=== PATIENT | female | born 1965 | race Caucasian/White ===

== ENCOUNTER → 2016-11-06 | Outpatient (CLI) | payer BC ==
[~2016-11-06] MED LIST: LEVO-105 PO; NYSTOIN TOP; PROM25TA PO; VLT500 PO
--- NOTE | 2016-11-07 14:08 | MAMMOGRAPHY REPORT ---
BILATERAL DIGITAL SCREENING MAMMOGRAM TOMOSYNTHESIS WITH CAD: 11/06/2016 CLINICAL HISTORY: Routine screening examination. TECHNIQUE: Breast tomosynthesis in addition to standard 2D mammography was performed. Current study was also evaluated with a Computer Aided Detection (CAD) system. COMPARISON: Comparison is made to exams dated: 11/03/2015 mammogram, 11/02/2014 mammogram - [facility], 10/18/2008, 10/19/2009 mammogram, 10/20/2010 mammogram, and 10/28/2012 mammogram - [facility]. BREAST COMPOSITION: The tissue of both breasts is extremely dense, which lowers the sensitivity of mammography. FINDINGS: There is a benign rim calcification within the left breast. The parenchymal pattern is s imilar to prior exams. No suspicious mass, architectural distortion or cluster of microcalcificatio ns is seen. IMPRESSION: ACR BI-RADS CATEGORY 1: NEGATIVE There is no mammographic evidence of malignancy. A 1 year screening mammogram is recommended. The p atient will receive written notification of the results. Approximately 10% of breast cancers are not detected with mammography. A negative mammographic repor t should not delay biopsy if a clinically suggestive mass is present. Pinky Hogan M.D. ay/:11/06/2016 21:14:53 Transaction Processor: Janna BHATT)(Breonna), [facility] letter sent: Normal 1/2 BI-RADS Code: ACR BI-RADS Category 1: Negative
== END | disposition home or self-care (01) ==
LOC: C.MAMM 15:09
PROVIDERS: ATTEND Obstetrics & Gynecology
DX: Z12.31 Encounter for screening mammogram for malignant neoplasm of breast (principal)

== ENCOUNTER → 2017-11-12 | Outpatient (CLI) | payer BC ==
--- NOTE | 2017-11-13 15:22 | MAMMOGRAPHY REPORT ---
BILATERAL DIGITAL SCREENING MAMMOGRAM TOMOSYNTHESIS WITH CAD: 11/12/2017 CLINICAL HISTORY: Routine screening. Patient has no complaints. TECHNIQUE: Breast tomosynthesis in addition to standard 2D mammography was performed. Current study was also evaluated with a Computer Aided Detection (CAD) system. COMPARISON: Comparison is made to exams dated: 11/06/2016 mammogram, 11/03/2015 mammogram, 11/02/2014 m ammogram, 10/29/2013 mammogram, 10/28/2012 mammogram, and 10/23/2011 mammogram - [facility]. BREAST COMPOSITION: The tissue of both breasts is extremely dense, which lowers the sensitivity of m ammography. FINDINGS: No suspicious masses, calcifications, or areas of architectural distortion are noted in ei ther breast. There has been no significant interval change compared to prior exams. IMPRESSION: ACR BI-RADS CATEGORY 1: NEGATIVE There is no mammographic evidence of malignancy. A 1 year screening mammogram is recommended. The pa tient will receive written notification of the results. Approximately 10% of breast cancers are not detected with mammography. A negative mammographic report should not delay biopsy if a clinically suggestive mass is present. Coby Castellanos M.D. /:11/12/2017 16:12:06 Knitter Mechanic: Kylie PANIAGUA(Shelia)(Breonna), [facility] [address] letter sent: Normal 1/2 BI-RADS Code: ACR BI-RADS Category 1: Negative
== END | disposition home or self-care (01) ==
LOC: C.MAMM 15:24
PROVIDERS: ATTEND Internal Medicine
DX: Z12.31 Encounter for screening mammogram for malignant neoplasm of breast (principal)

== ENCOUNTER → 2017-11-19 | Outpatient (CLI) | payer BC ==
--- NOTE | 2017-11-19 16:24 | DIAGNOSTIC IMAGING REPORT ---
R WRIST MIN 3 VIEWS ROUTINE HISTORY: 52 years-old Female CHRONIC RIGHT WRIST PAIN pain is most pronounced within the region of the first carpometacarpal joint COMPARISON: None available TECHNIQUE: 3 views of the right wrist FINDINGS: Mild radiocarpal and triscaphe degenerative changes with mild to moderate first carpometacarpal osteoarthritis. The bones appear mildly demineralized. No acute fracture or dislocation. No opaque foreign body. Soft tissues are unremarkable. IMPRESSION: Degenerative changes as above without acute fracture or dislocation. The above report was generated using voice recognition software. It may contain grammatical, syntax or spelling errors. Electronically signed by: Kamron Kirkland M.D. 11/19/2017 4:23 PM Dictated Date/Time: 11/19/2017 4:21 PM
== END | disposition home or self-care (01) ==
LOC: C.RDSM 15:32
PROVIDERS: ATTEND Internal Medicine
DX: M25.531 Pain in right wrist (principal); M89.8X3 Other specified disorders of bone, forearm

== ENCOUNTER → 2018-01-22 | Outpatient (CLI) | payer BC | END | disposition home or self-care (01) | LOC: C.PAPS 11:20 | PROVIDERS: ATTEND Obstetrics & Gynecology | DX: Z01.419 Encounter for gynecological examination (general) (routine) without abnormal findings (principal) ==

== ENCOUNTER → 2018-05-27 | Outpatient (CLI) | payer BC ==
[~2018-05-27] MED LIST changes: -LEVO-105 PO; +[UNRECOGNIZED DRUG - CODE] PO
[2018-05-27 17:12] LABS: BASO % 0.2 %; BASO ABS # 0.01 K/uL (0-0.2); EOS % 3.2 %; HEMATOCRIT 41.1 % (37-47); HEMOGLOBIN 13.8 g/dL (12.0-16.0); IG# 0.01 K/uL (0.00-0.02); LYMPH % 18.2 %; LYMPH ABS # 1.14 K/uL (1.2-3.4); MEAN CELL VOLUME 96.3 fL (80-100); MEAN CORPUSCULAR HEMOGLOBIN 32.3 pg (25-34); MEAN CORPUSCULAR HGB CONC 33.6 g/dl (32-36); MEAN PLATELET VOLUME 11.3 fL (7.4-10.4); MONO % 7.5 %; MONO ABS # 0.47 K/uL (0.11-0.59); NEUT % 70.7 %; NEUT ABS # 4.43 K/uL (1.4-6.5); PLATELET COUNT 180 K/uL (130-400); RED CELL DISTRIBUTION WIDTH CV 12.1 % (11.5-14.5); RED CELL DISTRIBUTION WIDTH SD 42.5 fL (36.4-46.3); WHITE BLOOD COUNT 6.26 K/uL (4.8-10.8)
[2018-05-27 17:32] LABS: ALBUMIN 3.9 gm/dl (3.4-5.0); ALKALINE PHOSPHATASE 71 U/L (45-117); ALT/SGPT 25 U/L (12-78); AST/SGOT 22 U/L (15-37); BLOOD UREA NITROGEN 13 mg/dl (7-18); CALCIUM 8.8 mg/dl (8.5-10.1); CARBON DIOXIDE 30 mmol/L (21-32); CHOLESTEROL 166 mg/dl (0-200); GLUCOSE 92 mg/dl (70-99); LDL CHOLESTEROL CALCULATED 53 mg/dl; POTASSIUM 4.3 mmol/L (3.5-5.1); SODIUM 135 mmol/L (136-145); TOTAL PROTEIN 7.6 gm/dl (6.4-8.2)
== END | disposition home or self-care (01) ==
LOC: C.LABBFT 14:46
PROVIDERS: ATTEND Internal Medicine
DX: I10 Essential (primary) hypertension (principal)